=== PATIENT | female | born 1965 | race Caucasian/White ===

== ENCOUNTER → 2020-06-10 | Outpatient (CLI) | payer BC, OTHER ==
[~2020-06-10] MED LIST: AMLODIPINE BESY10 MG PO; ASPIRIN EC81 MG PO; FERROUS SULFAT325 MG PO; LOSARTAN-HCTZ1 EAC1 PO; OMEPRAZOLE20 MG PO; PROZAC 20 MG CA20 MG PO; TIZANIDINE HCL4 MG PO; VITAMIN B-12100 MC1 PO
== END ==
LOC: EXRD 06-07 14:00 → US 14:04 → EXRD 14:30 → US 14:30
DX: N18.2 Chronic kidney disease, stage 2 (mild) (principal)

== ENCOUNTER 2021-08-12 09:32 | Emergency (ER) | payer BC ==
[2021-08-12 10:16] LABS: HEMOGLOBIN 10.5 gm/dl (12.3-15.3); RED BLOOD COUNT 3.83 M/UL (4.00-5.10); WHITE BLOOD COUNT 7.7 K/UL (4.5-11.0)
[2021-08-12 10:43] LABS: BUN/CREATININE RATIO 8 (0-10)
== END 2021-08-12 13:50 | disposition home or self-care (01) ==
LOC: ER1 09:32
PROVIDERS: Physician Assistant
DX: N17.9 Acute kidney failure, unspecified (principal); E86.0 Dehydration; E87.1 Hypo-osmolality and hyponatremia; I10 Essential (primary) hypertension; F17.290 Nicotine dependence, other tobacco product, uncomplicated
CPT/HCPCS: 71045; 80053; 81001; 82550; 82553; 84484; 85025; 87086; 93005; 99284